=== PATIENT | male | born 1945 | race Caucasian/White ===

== ENCOUNTER 2017-07-05 16:53 | Inpatient (IN) | payer MEDICARE, OTHER ==
[~2017-07-05] VITALS: Ht 185.4 cm; Wt 108.9 kg
[2017-07-05 17:31] VITALS: BP 133/70
[2017-07-05 18:06] LABS: BASO # 0.1 x10^3/uL (0.0-0.2); BASO % 1 % (0-3); EOS # 0.4 x10^3/uL (0.0-0.7); EOS % 6 % (0-3); HEMATOCRIT 44.9 % (39.0-53.0); HEMOGLOBIN 15.6 g/dL (13.0-17.5); LYMPH % 28 % (24-48); MEAN CORPUSCULAR HEMOGLOBIN 36 pg (25-35); MEAN CORPUSCULAR HGB CONC 35 g/dL (31-37); MEAN CORPUSCULAR VOLUME 104 fL (79-100); MONO % 14 % (0-9); NEUT # 3.7 x10^3uL (1.8-7.7); NEUT % 51 % (31-73); PLATELET COUNT 105 x10^3/uL (140-400); RED BLOOD COUNT 4.34 x10^6/uL (4.30-5.70); RED CELL DISTRIBUTION WIDTH 12.5 % (11.5-14.5); WHITE BLOOD COUNT 7.2 x10^3/uL (4.0-11.0)
[2017-07-05] MEDS: IPRATRPIUM/ALBUTEROL 0.5/2.5MG 3 ML NEBU. NEB SCH (18:14)
[2017-07-05 18:36] LABS: ALBUMIN 3.4 g/dL (3.4-5.0); ALBUMIN/GLOBULIN RATIO 0.9 (1.0-1.7); CALCIUM 9.4 mg/dL (8.5-10.1); CREATININE 1.5 mg/dL (0.7-1.3); GFR 46.1; POTASSIUM 4.5 mmol/L (3.5-5.1); TOTAL BILIRUBIN 0.7 mg/dL (0.2-1.0); TOTAL PROTEIN 7.2 g/dL (6.4-8.2)
[2017-07-05] MEDS ORDERED: CETI10TA22 PO (19:12)
[2017-07-05] MEDS ORDERED: OMEG1CAP38 PO (19:12)
[2017-07-05] MEDS ORDERED: MELO7.5T29 PO (19:12)
[2017-07-05] MEDS ORDERED: UBID100C26 PO (19:12)
[2017-07-05] MEDS ORDERED: TRIA10.8 NS (19:12)
[2017-07-05] MEDS ORDERED: CHOL100013 PO (19:12)
[2017-07-05] MEDS ORDERED: LEVO50TA PO (19:12)
[2017-07-05] MEDS ORDERED: METO50TA29 PO (19:12)
[2017-07-05] MEDS ORDERED: VITA1CAP5 PO (19:12)
[2017-07-05] MEDS ORDERED: VALS40TA2 PO (19:12)
[2017-07-05] MEDS ORDERED: MEMA28CA PO (19:12)
[2017-07-05] MEDS ORDERED: FOLI1TAB16 PO (19:12)
[2017-07-05] MEDS ORDERED: ASPI325T8 PO (19:13)
[2017-07-05] MEDS ORDERED: COLE625T12 PO (19:13)
[2017-07-05] MEDS ORDERED: ACYC400T PO (19:13)
[2017-07-05] MEDS ORDERED: ALLO100T PO (19:13)
[2017-07-05] MEDS ORDERED: TAMS0.4C2 PO (19:15)
[2017-07-05] MEDS ORDERED: PSYL0.5215 PO (19:15)
[2017-07-05] MEDS ORDERED: ESOM40CA PO (19:15)
[2017-07-05] MEDS ORDERED: SENN8.6T11 PO (19:15)
[2017-07-05] MEDS ORDERED: BIOT1CAP3 PO (19:15)
[2017-07-05] MEDS ORDERED: ATOR20TA PO (19:17)
[2017-07-05] MEDS ORDERED: MELA3TAB2 PO (19:17)
[2017-07-05] MEDS ORDERED: PREG150C PO (19:17)
[2017-07-05] MEDS ORDERED: ROPI1TAB PO (19:17)
[2017-07-05] MEDS ORDERED: AMIT25TA PO (19:20)
[2017-07-05 19:22] VITALS: BP 137/72
[2017-07-05] MEDS: IV NORMAL SALINE 1,000ML 1,000 ML IV SCH (20:44)
[2017-07-05 22:32] VITALS: BP 114/64
[2017-07-05 22:50] LABS: BACTERIA,URINE 0 /HPF (0-FEW); BILIRUBIN,URINE NEG (NEG); CLARITY,URINE CLEAR; COLOR,URINE STRAW; GLUCOSE,URINE NEG (NEG); NITRITE,URINE NEG (NEG); UROBILINOGEN,URINE 0.2 mg/dL (0.2 mg/dL); WBC,URINE OCC /HPF (0-4)
[2017-07-05 22:51] LABS: HYALINE CASTS, URINE FEW /HPF; SQUAMOUS EPITHELIAL CELL,UR FEW /LPF
[2017-07-06] MEDS: IPRATRPIUM/ALBUTEROL 0.5/2.5MG 3 ML NEBU. NEB SCH ×4 (04:24→22:07)
[2017-07-06 05:51] VITALS: BP 116/70
[2017-07-06 06:41] LABS: BASO # 0.1 x10^3/uL (0.0-0.2); BASO % 1 % (0-3); EOS # 0.4 x10^3/uL (0.0-0.7); EOS % 6 % (0-3); HEMATOCRIT 43.9 % (39.0-53.0); HEMOGLOBIN 15.3 g/dL (13.0-17.5); LYMPH # 1.8 x10^3/uL (1.0-4.8); LYMPH % 27 % (24-48); MEAN CORPUSCULAR HEMOGLOBIN 36 pg (25-35); MEAN CORPUSCULAR HGB CONC 35 g/dL (31-37); MEAN CORPUSCULAR VOLUME 104 fL (79-100); MONO # 0.8 x10^3/uL (0.0-1.1); MONO % 12 % (0-9); NEUT # 3.7 x10^3uL (1.8-7.7); NEUT % 55 % (31-73); PLATELET COUNT 108 x10^3/uL (140-400); RED BLOOD COUNT 4.23 x10^6/uL (4.30-5.70); RED CELL DISTRIBUTION WIDTH 12.4 % (11.5-14.5); WHITE BLOOD COUNT 6.8 x10^3/uL (4.0-11.0)
[2017-07-06 07:01] LABS: ALBUMIN 3.2 g/dL (3.4-5.0); ALBUMIN/GLOBULIN RATIO 0.9 (1.0-1.7); CALCIUM 8.9 mg/dL (8.5-10.1); CREATININE 1.3 mg/dL (0.7-1.3); GFR 54.4; TOTAL BILIRUBIN 0.7 mg/dL (0.2-1.0); TOTAL PROTEIN 6.8 g/dL (6.4-8.2)
--- NOTE | 2017-07-06 07:54 | RAD ---
Chest, 2 views, 07/05/2017: History: Productive cough, fever, malaise The heart size and pulmonary vascularity are normal. There is a calcified granuloma in the right lower chest. No pulmonary infiltrate is seen. No pleural fluid is evident. IMPRESSION: No acute cardiopulmonary abnormality is detected.
[2017-07-06] MEDS ORDERED: COLESEVELAM HCL 625 MG TABLET PO SCH (08:00)
[2017-07-06] MEDS: LEVOTHYROXINE 50 MCG TABLET PO SCH (08:02)
[2017-07-06] MEDS: IV NORMAL SALINE 1,000ML 1,000 ML IV SCH ×2 (08:03→20:40)
--- NOTE | 2017-07-06 08:50 | PDOC2 ---
JOSAFAT MEDINA APRN 07/06/17 0850: CONSULT Date of Admission DATE: 07/06/17 TIME: 08:36 Reason for Consult: dyspnea History of Present Illness Mr Prather is a 72 year old male who presented with complaints of headache starting several days ago followed by fever, dyspnea on exertion and productive cough. He reports baseline dyspnea on exertion with walking up 14 steps which he reports had not increased until the fever and cough started. He denies orthopnea or PND. He denies any chest discomfort. He reports occasional palpitations that he notices at night only without associated symptoms. He denies lightheadedness or syncope. He normally follows with Dr Singleton for cardiology and has a follow up in the next week. Cardiovascular: HTN, hyperipidemia CENTRAL NERVOUS SYSTEM: CVA GI: GERD, Other (polyps) Heme/Onc: Other (thrombocytopenia monitored by hematology, history of bone marrow biopsy reportedly normal, vitamin D deficiency) Musculoskeletal: Other (chronic neck pain) ENT: Other (retnal tear) Renal/: Other (CKD stage III) Endocrine: Hypothyroidism Past Surgical History C-2-3 subluxation tx with traction, bilateral great toe surgery, bilateral cataract surgery Family History significant for coronary disease, breast cancer, glaucoma, diabetes mellitus Social History non smoker, social alcohol intake of 1-2 drinks per occasion, once per month or less, no illicit drug use Current Medications Home cardiac medications Lipitor 20 mg every HS Co enzyme q10 Diovan 40 mg daily Metoprolol 50 mg daily aspirin 325mg BID welchol 1875mg BID Tamsulosin .4mg, 2 tabs every evening Nexium 40mg daily Current Medications Albuterol/ Ipratropium (Duoneb) 3 ml RTQID NEB Last administered on 07/06/17at 04 :24; Start 07/05/17 at 20:00 Sodium Chloride 1,000 ml @ 75 mls/hr [id number] IV Last administered on 07/06/17at 08:03; Start 07/05/17 at 18:00 Allopurinol (Zyloprim) 100 mg BID PO ; Start 07/06/17 at 09:00 Aspirin (Vini Aspirin) 325 mg DAILY PO ; Start 07/06/17 at 09:00 Atorvastatin Calcium (Lipitor) 20 mg QODAY PO ; Start 07/06/17 at 09:00 Cetirizine HCl (ZyrTEC) 10 mg DAILY PO ; Start 07/06/17 at 09:00 Colesevelam HCl (Welchol) 1,875 mg BIDWMEALS PO ; Start 07/06/17 at 08:00 Levothyroxine Sodium (Synthroid) 50 mcg DAILY07 PO Last administered on at 08:02; Start 07/06/17 at 07:00 Meloxicam (Mobic) 7.5 mg DAILY PO ; Start 07/06/17 at 09:00 Metoprolol Succinate (Toprol Xl) 50 mg DAILY PO ; Start 07/06/17 at 09:00 Pregabalin (Lyrica) 150 mg HS PO ; Start 07/06/17 at 21:00 Ropinirole HCl (Requip) 1 mg QHS PO ; Start 07/06/17 at 21:00 Tamsulosin HCl (Flomax) 0.8 mg DAILYBFRSUP PO ; Start 07/06/17 at 17:00 Acyclovir (Zovirax) 400 mg BID PO ; Start 07/06/17 at 09:00 Pantoprazole Sodium (Protonix) 40 mg DAILYWSUP PO ; Start 07/06/17 at 17:00 Melatonin 3 mg QHS PO ; Start 07/06/17 at 21:00 Memantine (Namenda) 10 mg BID PO ; Start 07/06/17 at 09:00 Fluticasone Propionate (Flonase) 2 spray DAILY NS ; Start 07/06/17 at 09:00 Losartan Potassium (Cozaar) 25 mg DAILY PO ; Start 07/06/17 at 09:00 Active Scripts Active Reported Amitriptyline Hcl 25 Mg Tablet 1 Tab PO QHS Melatonin 3 Mg Tablet 1 Tab PO QHS Lipitor (Atorvastatin Calcium) 20 Mg Tablet 20 Mg PO QODAY Requip (Ropinirole Hcl) 1 Mg Tablet 1 Tab PO QHS Lyrica (Pregabalin) 150 Mg Capsule 1 Cap PO HS Biotin 1 Mg Capsule 1 Mg PO DAILYWSUP Metamucil (Psyllium Husk) 0.52 Gm Capsule 0.52 Gm PO DAILYWSUP Senna Laxative (Sennosides) 8.6 Mg Tablet 8.6 Mg PO DAILYWSUP Nexium Capsule (Esomeprazole Magnesium) 40 Mg Capsule.dr 1 Cap PO DAILYWSUP Tamsulosin Hcl 0.4 Mg Cap.er.24h 2 Cap PO DAILYBFRSUP Welchol (Colesevelam Hcl) 625 Mg Tablet 1,875 Mg PO BID Allopurinol 100 Mg Tablet 1 Tab PO BID Acyclovir 400 Mg Tablet 1 Tab PO BID Aspirin 325 Mg Tablet 1 Tab PO DAILY Coq-10 (Ubidecarenone) 100 Mg Capsule 200 Mg PO QODAY [place] 3 Fish Oil Softgel ([place]-3 Fatty Acids/Fish Oil) 1 Each Capsule.dr 1 Each PO QODAY Folic Acid 1 Mg Tablet 1 Tab PO DAILY B Complex With Vitamin C (Vitamin B Complex & Vit C No.3) 1 Each Capsule 1 Each PO DAILY Vitamin D (Cholecalciferol (Vitamin D3)) 1,000 Unit Capsule 1 Cap PO DAILY Nasacort (Triamcinolone Acetonide) 10.8 Ml [place] 10.8 Ml NS DAILY Meloxicam 7.5 Mg Tablet 1 Tab PO DAILY Namenda Xr (Memantine Hcl) 28 Mg Cap.spr.24 28 Mg PO DAILY Zyrtec (Cetirizine Hcl) 10 Mg Tablet 1 Tab PO DAILY Metoprolol Succinate ( Xl ) (Metoprolol Succinate) 50 Mg Tab.er.24h 1 Tab PO DAILY Diovan (Valsartan) 40 Mg Tablet 1 Tab PO DAILY Synthroid (Levothyroxine Sodium) 50 Mcg Tablet 1 Tab PO DAILY Allergies: Coded Allergies: Penicillins (Verified Allergy, Severe, 07/05/17) Sulfa (Sulfonamide Antibiotics) (Verified Allergy, Severe, 07/05/17) Oglqcso-Zer-Acf Reductase Inhibitor (Verified Allergy, Intermediate, myalgia, 07/05/17) General: YES: Chills, Fatigue, Malaise HEENT: YES: Heacaches Respiratory: YES: Cough, SOB with excertion, Sputum Changes Cardiovascular: yes: Palpitations, Edema Musculoskeletal: YES: Other (peripheral neuropathy) General: Alert, Oriented X3, Cooperative, No acute distress HEENT: Atraumatic, EOMI, Mucous membr. moist/pink Lungs: Other (crackles left base, otherwise clear) Heart: Regular rate, Normal S1, Normal S2, Other (no gallops, clicks or rubs) Abdomen: Normal bowel sounds, Soft Extremities: No cyanosis, Normal pulses, Other (trace edema) Neuro: Normal speech, Strength at 5/5 X4 ext Psych/Mental Status: Mental status NL, Mood NL VITALS Vital Signs Date Time Temp Pulse Resp B/P (MAP) Pulse Ox O2 Delivery O2 Flow Rate FiO2 07/06/17 05:51 97.9 73 20 116/70 (85) 91 Room Air Labs Laboratory Tests Test 07/05/17 17:40 07/05/17 20:30 07/05/17 23:20 07/06/17 06:25 White Blood Count 7.2 x10^3/uL (4.0-11.0) 6.8 x10^3/uL (4.0-11.0) Red Blood Count 4.34 x10^6/uL (4.30-5.70) 4.23 x10^6/uL (4.30-5.70) Hemoglobin 15.6 g/dL (13.0-17.5) 15.3 g/dL (13.0-17.5) Hematocrit 44.9 % (39.0-53.0) 43.9 % (39.0-53.0) Mean Corpuscular Volume 104 fL (79-100) 104 fL (79-100) Mean Corpuscular Hemoglobin 36 pg (25-35) 36 pg (25-35) Mean Corpuscular Hemoglobin Concent 35 g/dL (31-37) 35 g/dL (31-37) Red Cell Distribution Width 12.5 % (11.5-14.5) 12.4 % (11.5-14.5) Platelet Count 105 x10^3/uL (140-400) 108 x10^3/uL (140-400) Neutrophils (%) (Auto) 51 % (31-73) 55 % (31-73) Lymphocytes (%) (Auto) 28 % (24-48) 27 % (24-48) Monocytes (%) (Auto) 14 % (0-9) 12 % (0-9) Eosinophils (%) (Auto) 6 % (0-3) 6 % (0-3) Basophils (%) (Auto) 1 % (0-3) 1 % (0-3) Neutrophils # (Auto) 3.7 x10^3uL (1.8-7.7) 3.7 x10^3uL (1.8-7.7) Lymphocytes # (Auto) 2.0 x10^3/uL (1.0-4.8) 1.8 x10^3/uL (1.0-4.8) Monocytes # (Auto) 1.0 x10^3/uL (0.0-1.1) 0.8 x10^3/uL (0.0-1.1) Eosinophils # (Auto) 0.4 x10^3/uL (0.0-0.7) 0.4 x10^3/uL (0.0-0.7) Basophils # (Auto) 0.1 x10^3/uL (0.0-0.2) 0.1 x10^3/uL (0.0-0.2) D-Dimer (Jasmyne) 1.19 mg/L (0.00-0.50) Sodium Level 137 mmol/L (136-145) 138 mmol/L (136-145) Potassium Level 4.5 mmol/L (3.5-5.1) 4.0 mmol/L (3.5-5.1) Chloride Level 101 mmol/L (98-107) 105 mmol/L (98-107) Carbon Dioxide Level 24 mmol/L (21-32) 25 mmol/L (21-32) Anion Gap 12 (6-14) 8 (6-14) Blood Urea Nitrogen 23 mg/dL (8-26) 21 mg/dL (8-26) Creatinine 1.5 mg/dL (0.7-1.3) 1.3 mg/dL (0.7-1.3) Estimated GFR (Cockcroft-Gault) 46.1 54.4 BUN/Creatinine Ratio 15 (6-20) 16 (6-20) Glucose Level 92 mg/dL (70-99) 104 mg/dL (70-99) Lactic Acid Level 1.0 mmol/L (0.4-2.0) Calcium Level 9.4 mg/dL (8.5-10.1) 8.9 mg/dL (8.5-10.1) Total Bilirubin 0.7 mg/dL (0.2-1.0) 0.7 mg/dL (0.2-1.0) Aspartate Amino Transf (AST/SGOT) 18 U/L (15-37) 20 U/L (15-37) Alanine Aminotransferase (ALT/SGPT) 24 U/L (16-63) 25 U/L (16-63) Alkaline Phosphatase 54 U/L (46-116) 48 U/L (46-116) Creatine Kinase 57 U/L (39-308) Creatine Kinase MB (Mass) 0.5 ng/mL (0.0-3.6) Creatine Kinase MB Relative Index 0.9 % (0-4) Troponin I Quantitative < 0.017 ng/mL (0-0.055) < 0.017 ng/mL (0-0.055) < 0.017 ng/mL (0-0.055) BH-Zxb-B-Type Natriuretic Peptide 147 pg/mL (0-124) Total Protein 7.2 g/dL (6.4-8.2) 6.8 g/dL (6.4-8.2) Albumin 3.4 g/dL (3.4-5.0) 3.2 g/dL (3.4-5.0) Albumin/Globulin Ratio 0.9 (1.0-1.7) 0.9 (1.0-1.7) Urine Collection Type Unknown Urine Color Straw Urine Clarity Clear Urine pH 5.5 Urine Specific [place] <=1.005 Urine Protein Neg (NEG-TRACE) Urine Glucose (UA) Neg mg/dL (NEG) Urine Ketones (Stick) Neg mg/dL (NEG) Urine Blood Neg (NEG) Urine Nitrite Neg (NEG) Urine Bilirubin Neg (NEG) Urine Urobilinogen Dipstick 0.2 mg/dL (0.2 mg/dL) Urine Leukocyte Esterase Neg (NEG) Urine RBC 1-2 /HPF (0-2) Urine WBC Occ /HPF (0-4) Urine Squamous Epithelial Cells Few /LPF Urine Bacteria 0 /HPF (0-FEW) Urine Hyaline Casts Few /HPF Urine Mucus Slight /LPF Images EKG - sinus rhythm, leftward axis, nonspecific T abn, no acute ischemic changes CXR - IMPRESSION: No acute cardiopulmonary abnormality is detected. Assessment/Plan 1. dyspnea on exertion - stable prior to acute onset of illness. Check echo for LV function and request records from [facility]. 2. Pneumonia - mgmt per PCP 3. hypertension - resume home medications 4. hyperlipidemia - check lipids and resume statin Echo as mentioned above, review records from [facility] when available. If no significant abnormalities would be ok to follow up with Dr Singleton as scheduled in the next week from cardiac standpoint. Problems: AVNI GRIGGS MD 07/06/17 1434: CONSULT Allergies: Coded Allergies: Penicillins (Verified Allergy, Severe, 07/05/17) Sulfa (Sulfonamide Antibiotics) (Verified Allergy, Severe, 07/05/17) Hkmeawq-Wmv-Vhf Reductase Inhibitor (Verified Allergy, Intermediate, myalgia, 07/05/17) Assessment/Plan Patient seen and examined. Agree with HATCHERY WORKER's assessment and plan. Patient has dyspnea on exertion but does not have any clinical evidence for fluid overload. Check 2-D echo to assess LV systolic function and rule out wall motion abnormalities. Further ischemic workup in the form of Lexiscan nuclear stress test could be considered as an outpatient. Thank you for your consultation. Problems: JOSAFAT MEDINA APRN July 06, 2017 08:50 AVNI GRIGGS MD July 06, 2017 14:34
[2017-07-06] MEDS ORDERED: ATORVASTATIN CALCIUM 20 MG TABLET PO SCH (09:00)
[2017-07-06] MEDS: ACYCLOVIR 200 MG CAPSULE PO SCH ×2 (09:12→21:06)
[2017-07-06] MEDS: LOSARTAN 25 MG TABLET. PO SCH (09:13)
[2017-07-06] MEDS: ASPIRIN 325 MG TABLET PO SCH (09:13)
[2017-07-06] MEDS: CETIRIZINE HCL 10 MG TABLET PO SCH (09:14)
[2017-07-06] MEDS: METOPROLOL SUCC 24HR ER 50 MG TAB.ER.24H. PO SCH (09:14)
[2017-07-06] MEDS: MELOXICAM 7.5 MG TABLET PO SCH (09:14)
[2017-07-06] MEDS: ALLOPURINOL 100 MG TABLET. PO SCH ×2 (09:14→21:05)
[2017-07-06] MEDS: MEMANTINE 10 MG TABLET. PO SCH ×2 (09:14→21:06)
[2017-07-06] MEDS: ENOXAPARIN 40 MG/0.4 ML DISP.SYRIN. SQ SCH (09:23)
[2017-07-06] MEDS: FLUTICASONE 50MCG/NASAL SPRAY 16GM BOTTLE. NS SCH (09:23)
--- NOTE | 2017-07-06 10:44 | RAD ---
CTA chest with contrast 07/06/2017 Clinical indication: Elevated d-dimer. COMPARISON: Two-view chest 07/05/2017 TECHNIQUE: Multiple CTA images of the chest were obtained following the intravenous administration of 60 mL Omnipaque 300. MIPS were obtained of the chest. *One or more of the following individualized dose reduction techniques were utilized for this examination: 1. Automated exposure control. 2. Adjustment of the mA and/or kV according to patient size. 3. Use of iterative reconstruction technique. FINDINGS: Nondiagnostic evaluation of the major segmental and subsegmental pulmonary arteries. Main pulmonary artery is patent. Heart size is normal without significant pericardial effusion. Three-vessel coronary artery calcifications. Mild dilatation of the ascending thoracic aorta measuring 4.1 cm. There is scattered mixed atheromatous disease throughout the thoracic aorta. No axillary, mediastinal or hilar lymphadenopathy. There are scattered right hilar calcified granulomas. The central airways are patent. There is minimal subsegmental atelectasis or scarring in the dependent bilateral lower lobes. There are scattered calcific granulomas in the right lung. There is a 0.4 cm subpleural noncalcified nodule in the right middle lobe series 3/image 53 which is likely benign intrapulmonic lymph node. There are no destructive osseous lesions. Limited images of the upper abdomen: 2.1 cm hypodensity in the superior pole the right kidney which does not meet strict criteria for simple cyst. There are additional bilateral renal hypodensities which are too small to characterize. IMPRESSION: 1. Nondiagnostic evaluation of the major and subsegmental pulmonary arteries. 2. No main pulmonary arterial embolism. 3. Indeterminate bilateral renal hypodensities. Nonemergent follow-up CT or MRI without and with contrast (renal protocol). 4. Dilated ascending thoracic aorta measuring 4.1 cm. Electronically signed by: Robert Turk MD (07/06/2017 10:40 AM) [id number]
[2017-07-06 11:27] VITALS: BP 121/67
--- NOTE | 2017-07-06 14:10 | EKG ---
[address] [address] Test Date: 2017-07-05 Test Time: 17:32:23 Pat Name: KEVIN MANDUJANO Department: Room: 115 A Gender: M Patent Legal Assistant: : [id number] Requested By: FLORY GALE Order Number: [id number] Reading MD: Ayush Siu Measurements Intervals [place] Rate: P: OR: QRS: QRSD: T: QT: QTc: Interpretive Statements SINUS RHYTHM NONSPECIFIC ST-T WAVE CHANGES SEPTAL Q WAVE Electronically Signed On 07-12-2017 17:35:52 CDT by Ayush Siu
[2017-07-06 15:32] VITALS: BP 102/66
[2017-07-06] MEDS ORDERED: PANTOPRAZOLE 40 MG TABLET. PO SCH (17:00)
[2017-07-06] MEDS ORDERED: TAMSULOSIN 0.4 MG CAP.ER.24H. PO SCH (17:00)
[2017-07-06 19:49] VITALS: BP 109/77
[2017-07-06] MEDS ORDERED: PREGABALIN 150 MG CAPSULE PO SCH (21:00)
[2017-07-06] MEDS ORDERED: MELATONIN 3 MG TABLET PO SCH (21:00)
[2017-07-06] MEDS ORDERED: rOPINIRole 1 MG TABLET. PO SCH (21:00)
[2017-07-06 22:51] VITALS: BP 135/65
--- NOTE | 2017-07-07 05:10 | PN ---
DATE: 07/06/2017 SUBJECTIVE: The patient is a 72-year-old male who is in with complaints of headache for several days followed by fever, dyspnea on exertion and productive cough. The patient has baseline dyspnea; however, his EKG showed the patient to have some form of bigeminy. He was admitted. He also had some chest tightness. It appears that he also has some hypothyroidism, involved in an elevated D-dimer. The patient's imaging showed that he had a CTA that showed a dilated ascending thoracic aorta at 4.1 cm. Otherwise, some calcified granulomas, however, otherwise unremarkable. Echo was still being pending. OBJECTIVE: VITAL SIGNS: Blood pressure 100/66, respiratory rate 20, pulse 90, afebrile. GENERAL: The patient is alert and oriented. LUNGS: Diminished throughout, poor movement of air. CARDIOVASCULAR: Regular sinus rhythm, S1, S2. No murmur, rub, thrill, or extra heart sound. ABDOMEN: Soft, nontender, no rebound or guarding. Positive bowel sounds, no hepatosplenomegaly noted. EXTREMITIES: No clubbing, cyanosis or edema. NEUROLOGIC: Intact. IMPRESSION: Chest pain, dyspnea, elevated D-dimer, hypercholesterolemia, hyperlipidemia, thrombocytopenia, acute bronchitis, hueo-xw-adkzwlqu protein malnutrition, hypothyroidism. PLAN: Continue with present workup with Cardiology to make further evaluation on him as indicated. FLORY GALE MD DR: RIDDHI/pal JOB#: [id number] / [id number]
[2017-07-07 05:36] VITALS: BP 147/80
[2017-07-07] MEDS: LEVOTHYROXINE 50 MCG TABLET PO SCH (05:38)
[2017-07-07] MEDS: IPRATRPIUM/ALBUTEROL 0.5/2.5MG 3 ML NEBU. NEB SCH ×2 (05:46→10:27)
[2017-07-07] MEDS: MELOXICAM 7.5 MG TABLET PO SCH (08:16)
[2017-07-07] MEDS: MEMANTINE 10 MG TABLET. PO SCH (08:17)
[2017-07-07] MEDS: CETIRIZINE HCL 10 MG TABLET PO SCH (08:17)
[2017-07-07] MEDS: LOSARTAN 25 MG TABLET. PO SCH (08:17)
[2017-07-07] MEDS: ACYCLOVIR 200 MG CAPSULE PO SCH (08:17)
[2017-07-07] MEDS: ASPIRIN 325 MG TABLET PO SCH (08:17)
[2017-07-07 08:18] VITALS: BP 147/80
[2017-07-07] MEDS: METOPROLOL SUCC 24HR ER 50 MG TAB.ER.24H. PO SCH (08:18)
[2017-07-07] MEDS: ENOXAPARIN 40 MG/0.4 ML DISP.SYRIN. SQ SCH (08:18)
[2017-07-07] MEDS: ALLOPURINOL 100 MG TABLET. PO SCH (08:18)
[2017-07-07] MEDS: IV NORMAL SALINE 1,000ML 1,000 ML IV SCH (08:19)
[2017-07-07] MEDS: COLESEVELAM HCL 625 MG TABLET PO SCH ×2 (08:19→08:24)
[2017-07-07] MEDS: FLUTICASONE 50MCG/NASAL SPRAY 16GM BOTTLE. NS SCH (08:19)
--- NOTE | 2017-07-07 08:29 | CARD ---
MR#: [id number] Date of Study: 07/06/2017 Ordering Physician: JOSAFAT MEDINA, Referring Physician: FLORY GALE, Tech: GOLDEN Howe APPROVED REPORT EXAM: Two-dimensional and M-mode echocardiogram with Doppler and color Doppler. Other Information Quality : Fair INDICATION Abnormal ECG 2D DIMENSIONS Left Atrium(2D)4.6 (1.6-4.0cm)IVSd1.2 (0.7-1.1cm) Aortic Root(2D)2.7 (2.0-3.7cm)LVDd5.1 (3.9-5.9cm) LVOT Diameter2.0 (1.8-2.4cm)IVSs1.4 (0.8-1.2cm) LVDs2.6 (2.5-4.0cm)FS (%) 49.0 % SV97.8 mlLVEF(%)65.0 (>50%) Aortic Valve AoV Peak Geovanny.136.9cm/[place] GR.7.5mmHg Mitral Valve MV E Ybvaxidz205.2cm/sMV A Jbomqetw56.1cm/s E/A Ratio1.3 Tricuspid Valve TR P. Hsaatsxu11il/sRAP [id number] TR Peak Gr.[id number] LEFT VENTRICLE The left ventricle is normal size. There is mild concentric left ventricular hypertrophy. The left ve ntricular systolic function is normal and the ejection fraction is within normal range. The Ejection Fraction is 60-65%. There is normal LV segmental wall motion. RIGHT VENTRICLE The right ventricle is normal size. There is normal right ventricular wall thickness. The right ventr icular systolic function is normal. ATRIA The left atrium is mildly dilated. The right atrium size is normal. The interatrial septum is intact with no evidence for an atrial septal defect or patent foramen ovale as noted on 2-D or Doppler imagi ng. AORTIC VALVE The aortic valve is trileaflet. The aortic valve is mildly calcified. Doppler and Color Flow revealed mild aortic regurgitation. There is no significant aortic valvular stenosis. MITRAL VALVE Mitral annular calcification is mild. There is no evidence of mitral valve prolapse. There is no mitr al valve stenosis. Doppler and Color-flow revealed trace to mild mitral regurgitation. TRICUSPID VALVE The tricuspid valve is normal in structure and function. Doppler and Color Flow revealed trace tricus pid regurgitation. The PASP is 48mmHg. There is no tricuspid valve stenosis. PULMONIC VALVE The pulmonic valve is not well visualized. Doppler and Color Flow revealed no pulmonic valvular regur gitation. There is no pulmonic valvular stenosis. GREAT VESSELS The aortic root is normal in size. The ascending aorta is mildly dilated at 4.1 cm The IVC partially collapses with inspiration. PERICARDIAL EFFUSION There is no pleural effusion. There is no evidence of significant pericardial effusion. Critical Notification Critical Value: No <Conclusion> The left ventricular systolic function is normal and the ejection fraction is within normal range. Th e Ejection Fraction is 60-65%. There is normal LV segmental wall motion. Doppler and Color Flow revealed mild aortic regurgitation. Doppler and Color Flow revealed trace tricuspid regurgitation. The PASP is 48mmHg. The ascending aorta is mildly dilated at 4.1 cm Signed by : Francis Barbosa, Electronically Approved : 07/07/2017 08:28:58
--- NOTE | 2017-07-07 09:16 | PDOC ---
PROGRESS NOTES Assessment 1. dyspnea on exertion - stable prior to acute onset of illness. normal LV function and wall motion by echo. Keep scheduled follow up with [facility]. 2. Pneumonia - mgmt per PCP 3. hypertension - blood pressure has been well controlled. mildly elevated today. monitor outpatient and consider increase of losartan. 4. hyperlipidemia - controlled, continue statin Problems: Subjective feeling better, would like to go home. no chest pain, less shortness of breath , no palpitations, no lightheadedness. Objective Vital Signs Date Time Temp Pulse Resp B/P (MAP) Pulse Ox O2 Delivery O2 Flow Rate FiO2 07/07/17 08:18 66 147/80 07/07/17 05:46 94 Room Air 07/07/17 05:36 97.7 20 Intake and Output 07/07/17 07:00 Intake Total 2377 ml Balance 2377 ml Intake Oral 1290 ml IV Total 1087 ml # Voids 3 Abdomen: Normal bowel sounds, Soft, No tenderness Heart: Regular rate, Normal S1, Normal S2 Extremities: No cyanosis, Normal pulses General: Alert, Oriented X3, Cooperative Lungs: Other (decreased bases, otherwise clear) Neuro: Normal gait, Normal speech, Strength at 5/5 X4 ext Psych/Mental Status: Mental status NL, Mood NL Review of Relevant I have reviewed the following items federico (where applicable) has been applied. Labs Laboratory Tests Test 07/05/17 17:40 07/05/17 20:30 07/05/17 23:20 07/06/17 06:25 White Blood Count 7.2 x10^3/uL (4.0-11.0) 6.8 x10^3/uL (4.0-11.0) Red Blood Count 4.34 x10^6/uL (4.30-5.70) 4.23 x10^6/uL (4.30-5.70) Hemoglobin 15.6 g/dL (13.0-17.5) 15.3 g/dL (13.0-17.5) Hematocrit 44.9 % (39.0-53.0) 43.9 % (39.0-53.0) Mean Corpuscular Volume 104 fL (79-100) 104 fL (79-100) Mean Corpuscular Hemoglobin 36 pg (25-35) 36 pg (25-35) Mean Corpuscular Hemoglobin Concent 35 g/dL (31-37) 35 g/dL (31-37) Red Cell Distribution Width 12.5 % (11.5-14.5) 12.4 % (11.5-14.5) Platelet Count 105 x10^3/uL (140-400) 108 x10^3/uL (140-400) Neutrophils (%) (Auto) 51 % (31-73) 55 % (31-73) Lymphocytes (%) (Auto) 28 % (24-48) 27 % (24-48) Monocytes (%) (Auto) 14 % (0-9) 12 % (0-9) Eosinophils (%) (Auto) 6 % (0-3) 6 % (0-3) Basophils (%) (Auto) 1 % (0-3) 1 % (0-3) Neutrophils # (Auto) 3.7 x10^3uL (1.8-7.7) 3.7 x10^3uL (1.8-7.7) Lymphocytes # (Auto) 2.0 x10^3/uL (1.0-4.8) 1.8 x10^3/uL (1.0-4.8) Monocytes # (Auto) 1.0 x10^3/uL (0.0-1.1) 0.8 x10^3/uL (0.0-1.1) Eosinophils # (Auto) 0.4 x10^3/uL (0.0-0.7) 0.4 x10^3/uL (0.0-0.7) Basophils # (Auto) 0.1 x10^3/uL (0.0-0.2) 0.1 x10^3/uL (0.0-0.2) D-Dimer (Jasmyne) 1.19 mg/L (0.00-0.50) Sodium Level 137 mmol/L (136-145) 138 mmol/L (136-145) Potassium Level 4.5 mmol/L (3.5-5.1) 4.0 mmol/L (3.5-5.1) Chloride Level 101 mmol/L (98-107) 105 mmol/L (98-107) Carbon Dioxide Level 24 mmol/L (21-32) 25 mmol/L (21-32) Anion Gap 12 (6-14) 8 (6-14) Blood Urea Nitrogen 23 mg/dL (8-26) 21 mg/dL (8-26) Creatinine 1.5 mg/dL (0.7-1.3) 1.3 mg/dL (0.7-1.3) Estimated GFR (Cockcroft-Gault) 46.1 54.4 BUN/Creatinine Ratio 15 (6-20) 16 (6-20) Glucose Level 92 mg/dL (70-99) 104 mg/dL (70-99) Lactic Acid Level 1.0 mmol/L (0.4-2.0) Calcium Level 9.4 mg/dL (8.5-10.1) 8.9 mg/dL (8.5-10.1) Total Bilirubin 0.7 mg/dL (0.2-1.0) 0.7 mg/dL (0.2-1.0) Aspartate Amino Transf (AST/SGOT) 18 U/L (15-37) 20 U/L (15-37) Alanine Aminotransferase (ALT/SGPT) 24 U/L (16-63) 25 U/L (16-63) Alkaline Phosphatase 54 U/L (46-116) 48 U/L (46-116) Creatine Kinase 57 U/L (39-308) Creatine Kinase MB (Mass) 0.5 ng/mL (0.0-3.6) Creatine Kinase MB Relative Index 0.9 % (0-4) Troponin I Quantitative < 0.017 ng/mL (0-0.055) < 0.017 ng/mL (0-0.055) < 0.017 ng/mL (0-0.055) ZV-Smo-B-Type Natriuretic Peptide 147 pg/mL (0-124) Total Protein 7.2 g/dL (6.4-8.2) 6.8 g/dL (6.4-8.2) Albumin 3.4 g/dL (3.4-5.0) 3.2 g/dL (3.4-5.0) Albumin/Globulin Ratio 0.9 (1.0-1.7) 0.9 (1.0-1.7) Thyroid Stimulating Hormone (TSH) 5.396 uIU/mL (0.358-3.740) Urine Collection Type Unknown Urine Color Straw Urine Clarity Clear Urine pH 5.5 Urine Specific [place] <=1.005 Urine Protein Neg (NEG-TRACE) Urine Glucose (UA) Neg mg/dL (NEG) Urine Ketones (Stick) Neg mg/dL (NEG) Urine Blood Neg (NEG) Urine Nitrite Neg (NEG) Urine Bilirubin Neg (NEG) Urine Urobilinogen Dipstick 0.2 mg/dL (0.2 mg/dL) Urine Leukocyte Esterase Neg (NEG) Urine RBC 1-2 /HPF (0-2) Urine WBC Occ /HPF (0-4) Urine Squamous Epithelial Cells Few /LPF Urine Bacteria 0 /HPF (0-FEW) Urine Hyaline Casts Few /HPF Urine Mucus Slight /LPF Triglycerides Level 88 mg/dL (0-150) Cholesterol Level 129 mg/dL (0-200) LDL Cholesterol, Calculated 79 mg/dL (0-100) VLDL Cholesterol, Calculated 17 mg/dL (0-40) Non-HDL Cholesterol Calculated 96 mg/dL (0-129) HDL Cholesterol 33 mg/dL (40-60) Cholesterol/HDL Ratio 3.0 Microbiology 07/05/17 Blood Culture - Preliminary, Resulted NO GROWTH AFTER 1 DAY Medications Current Medications Albuterol/ Ipratropium (Duoneb) 3 ml RTQID NEB Last administered on 07/07/17at 05 :46; Start 07/05/17 at 20:00 Sodium Chloride 1,000 ml @ 75 mls/hr [id number] IV Last administered on 07/06/17at 08:03; Start 07/05/17 at 18:00 Allopurinol (Zyloprim) 100 mg BID PO Last administered on 07/07/17at 08:18; Start 07/06/17 at 09:00 Aspirin (Vini Aspirin) 325 mg DAILY PO Last administered on 07/07/17at 08:17; Start 07/06/17 at 09:00 Atorvastatin Calcium (Lipitor) 20 mg QODAY PO Last administered on 07/06/17at 09: 13; Start 07/06/17 at 09:00 Cetirizine HCl (ZyrTEC) 10 mg DAILY PO Last administered on 07/07/17at 08:17; Start 07/06/17 at 09:00 Colesevelam HCl (Welchol) 1,875 mg BIDWMEALS PO Last administered on 07/06/17at 09:31; Start 07/06/17 at 08:00; Stop 07/06/17 at 10:08; Status DC Levothyroxine Sodium (Synthroid) 50 mcg DAILY07 PO Last administered on at 05:38; Start 07/06/17 at 07:00 Meloxicam (Mobic) 7.5 mg DAILY PO Last administered on 07/07/17at 08:16; Start at 09:00 Metoprolol Succinate (Toprol Xl) 50 mg DAILY PO Last administered on 07/07/17 08:18; Start 07/06/17 at 09:00 Pregabalin (Lyrica) 150 mg HS PO Last administered on 07/06/17 21:06; Start 07/06/17 at 21:00 Ropinirole HCl (Requip) 1 mg QHS PO Last administered on 07/06/17at 21:05; Start 07/06/17 at 21:00 Tamsulosin HCl (Flomax) 0.8 mg DAILYBFRSUP PO Last administered on 07/06/17at 17: 07; Start 07/06/17 at 17:00 Acyclovir (Zovirax) 400 mg BID PO Last administered on 07/07/17 08:17; Start at 09:00 Pantoprazole Sodium (Protonix) 40 mg DAILYWSUP PO Last administered on at 17:07; Start 07/06/17 at 17:00 Melatonin 3 mg QHS PO Last administered on 07/06/17at 21:06; Start 07/06/17 at 21: 00 Memantine (Namenda) 10 mg BID PO Last administered on 07/07/17at 08:17; Start 07/06/17 at 09:00 Fluticasone Propionate (Flonase) 2 spray DAILY NS Last administered on at 09:23; Start 07/06/17 at 09:00 Losartan Potassium (Cozaar) 25 mg DAILY PO Last administered on 07/07/17at 08:17 ; Start 07/06/17 at 09:00 Enoxaparin Sodium (Lovenox) 40 mg Q24H SQ Last administered on 07/07/17at 08:18; Start 07/06/17 at 09:00 Colesevelam HCl (Welchol) 1,875 mg QODAY PO Last administered on 07/07/17at 08:19 ; Start 07/07/17 at 08:00 Active Scripts Active Reported Amitriptyline Hcl 25 Mg Tablet 1 Tab PO QHS Melatonin 3 Mg Tablet 1 Tab PO QHS Lipitor (Atorvastatin Calcium) 20 Mg Tablet 20 Mg PO QODAY Requip (Ropinirole Hcl) 1 Mg Tablet 1 Tab PO QHS Lyrica (Pregabalin) 150 Mg Capsule 1 Cap PO HS Biotin 1 Mg Capsule 1 Mg PO DAILYWSUP Metamucil (Psyllium Husk) 0.52 Gm Capsule 0.52 Gm PO DAILYWSUP Senna Laxative (Sennosides) 8.6 Mg Tablet 8.6 Mg PO DAILYWSUP Nexium Capsule (Esomeprazole Magnesium) 40 Mg Capsule.dr 1 Cap PO DAILYWSUP Tamsulosin Hcl 0.4 Mg Cap.er.24h 2 Cap PO DAILYBFRSUP Welchol (Colesevelam Hcl) 625 Mg Tablet 1,875 Mg PO BID Allopurinol 100 Mg Tablet 1 Tab PO BID Acyclovir 400 Mg Tablet 1 Tab PO BID Aspirin 325 Mg Tablet 1 Tab PO DAILY Coq-10 (Ubidecarenone) 100 Mg Capsule 200 Mg PO QODAY [place] 3 Fish Oil Softgel ([place]-3 Fatty Acids/Fish Oil) 1 Each Capsule.dr 1 Each PO QODAY Folic Acid 1 Mg Tablet 1 Tab PO DAILY B Complex With Vitamin C (Vitamin B Complex & Vit C No.3) 1 Each Capsule 1 Each PO DAILY Vitamin D (Cholecalciferol (Vitamin D3)) 1,000 Unit Capsule 1 Cap PO DAILY Nasacort (Triamcinolone Acetonide) 10.8 Ml [place] 10.8 Ml NS DAILY Meloxicam 7.5 Mg Tablet 1 Tab PO DAILY Namenda Xr (Memantine Hcl) 28 Mg Cap.spr.24 28 Mg PO DAILY Zyrtec (Cetirizine Hcl) 10 Mg Tablet 1 Tab PO DAILY Metoprolol Succinate ( Xl ) (Metoprolol Succinate) 50 Mg Tab.er.24h 1 Tab PO DAILY Diovan (Valsartan) 40 Mg Tablet 1 Tab PO DAILY Synthroid (Levothyroxine Sodium) 50 Mcg Tablet 1 Tab PO DAILY Vitals/I & O Vital Sign - Last 24 Hours 5/107/06/17 07/06/17 07/06/17 10:32 11:27 15:32 16:58 Temp 97.8 97.9 Pulse 85 72 Resp 20 20 B/P (MAP) 121/67 (85) 102/66 (78) Pulse Ox 92 91 93 93 O2 Delivery Room Air Room Air Room Air 07/06/17 07/06/17 07/06/17 07/06/17 19:49 20:00 22:07 22:51 Temp 97.7 97.8 Pulse 81 76 Resp 20 18 B/P (MAP) 109/77 (88) 135/65 (88) Pulse Ox 93 95 92 O2 Delivery Room Air Room Air Room Air Room Air 07/07/17 07/07/17 07/07/17 07/07/17 05:36 05:46 08:17 08:18 Temp 97.7 Pulse 66 66 66 Resp 20 B/P (MAP) 147/80 (102) 147/80 147/80 Pulse Ox 93 94 O2 Delivery Room Air Room Air Intake and Output 07/06/17 07/06/17 07/07/17 15:00 23:00 07:00 Intake Total 240 ml 1387 ml 750 ml Balance 240 ml 1387 ml 750 ml JOSAFAT [employer] July 07, 2017 09:16
[2017-07-07] MEDS ORDERED: DOXY100C2 PO (10:27)
[2017-07-07] MEDS ORDERED: FLUT16SP21 NS (10:27)
--- NOTE | 2017-07-07 12:07 | DS ---
DATE OF DISCHARGE: 07/07/2017 HOSPITAL COURSE: This 72-year-old gentleman initially came in through the office. He was having complaints of several days of fever or dyspnea on exertion, productive cough. He was quite diaphoretic in the office. He had some forms of bigeminy and chest tightness. He was also noted to have an elevated D-dimer and alike. As a result of this, the patient was admitted to the hospital for further evaluation and treatment and placed on IV antibiotic therapy as well as aggressive pulmonary toilet. His TSH was slightly elevated at 5.4. His cholesterol was being controlled with various medications. His cardiac enzymes were negative. Cardiology was consulted. D-dimer positive, although a CTA was unremarkable. The patient otherwise made good progress during the rest of his hospitalization. An indeterminate bilateral renal hypodensity was noted on his kidneys and recommended a followup MRI scan of them. In any case, the patient had various stress tests and alike with Cardiology and they came out to be basically stable with no significant finding at this time, although the patient will follow up with his usual vp public relations, Dr. Singleton from [facility]. His ejection fraction was 60-65%, normal left ventricular segmental wall motion revealed mild aortic regurgitation, trace tricuspid regurgitation and as noted, the aorta dilated to 5.1 cm. The patient made excellent progress during the rest of his hospitalization. He was discharged home for followup with Cardiology as well as primary care physician. IMPRESSION: Systemic inflammatory response syndrome, unknown etiology; [id number] protein malnutrition; hypothyroidism; ventricular arrhythmias. The patient will be discharged home to follow up as an outpatient. 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 FLORY GALE MD DR: RIDDHI/pal JOB#: [id number] / [id number]
== END 2017-07-07 10:47 | disposition home or self-care (01) | DRG 178 ==
LOC: 1 SOUTH 17:03
PROVIDERS: ADMIT Family Medicine; ATTEND Family Medicine
DX: J15.8 Pneumonia due to other specified bacteria (principal); E44.0 Moderate protein-calorie malnutrition; D69.6 Thrombocytopenia, unspecified; R65.10 Systemic inflammatory response syndrome (SIRS) of non-infectious origin without acute organ dysfunction; R06.03 Acute respiratory distress; I35.1 Nonrheumatic aortic (valve) insufficiency; J20.9 Acute bronchitis, unspecified; N18.3 Chronic kidney disease, stage 3 (moderate); I49.8 Other specified cardiac arrhythmias; E78.5 Hyperlipidemia, unspecified; I77.810 Thoracic aortic ectasia; R94.31 Abnormal electrocardiogram [ECG] [EKG]; R00.8 Other abnormalities of heart beat; R07.89 Other chest pain; I49.9 Cardiac arrhythmia, unspecified; D49.519 Neoplasm of unspecified behavior of unspecified kidney; M54.2 Cervicalgia; E03.9 Hypothyroidism, unspecified; G89.29 Other chronic pain; E78.00 Pure hypercholesterolemia, unspecified; K21.9 Gastro-esophageal reflux disease without esophagitis; I12.9 Hypertensive chronic kidney disease with stage 1 through stage 4 chronic kidney disease, or unspecified chronic kidney disease; Z83.3 Family history of diabetes mellitus; Z80.3 Family history of malignant neoplasm of breast; Z86.73 Personal history of transient ischemic attack (TIA), and cerebral infarction without residual deficits; Z86.69 Personal history of other diseases of the nervous system and sense organs; Z68.31 Body mass index [BMI] 31.0-31.9, adult; Z79.899 Other long term (current) drug therapy; Z88.0 Allergy status to penicillin; Z88.2 Allergy status to sulfonamides; Z88.8 Allergy status to other drugs, medicaments and biological substances
CPT/HCPCS: 36415; 71046; 71275; 80053; 80061; 81001; 82553; 83605; 83880; 84443; 84484; 85025; 85379; 87040; 93005; 93306; 94640; J1650; J7620; J7030

== ENCOUNTER → 2017-08-20 | Outpatient (CLI) | payer MEDICARE, OTHER ==
[~2017-08-20] MED LIST: ACYC400T PO; ALLO100T PO; AMIT25TA PO; ASPI325T8 PO; ATOR20TA PO; BIOT1CAP3 PO; CETI10TA22 PO; CHOL100013 PO; COLE625T12 PO; DOXY100C2 PO; ESOM40CA PO; FLUT16SP21 NS; FOLI1TAB16 PO; LEVO50TA PO; MELA3TAB2 PO; MELO7.5T29 PO; MEMA28CA PO; METO50TA29 PO; OMEG1CAP38 PO; PREG150C PO; PSYL0.5215 PO; ROPI1TAB PO; SENN8.6T11 PO; TAMS0.4C2 PO; TRIA10.8 NS; UBID100C26 PO; VALS40TA2 PO; VITA1CAP5 PO
--- NOTE | 2017-08-20 10:39 | RAD ---
Renal Ultrasound 08.20.17 comparison study: None Discussion: Ultrasound evaluation of the kidneys is performed. Static images were submitted to PACS. Right kidney measures 10.6 x 5.9 x 5.5 cm. Left kidney measures 10.5 x 4.7 x 4.9 cm. 2 simple appearing cysts are seen in the right kidney measuring 2.2 and 1.9 cm in maximal dimension slightly.Punctate calcification is seen in the mid right kidney. Small cyst seen in superior left kidney measuring approximately 1.6 cm in diameter. No hydronephrosis identified involving either kidney. Blood flow is grossly unremarkable in color Doppler imaging. Bilateral ureteral jets are noted. Limited visualization of the bladder is unremarkable. Prevoid bladder volume 117 cc. Postvoid volume 28 cc. IMPRESSION: 1. Small renal cysts bilaterally 2. Punctate cortical calcification in right kidney. This could represent a small dystrophic calcification. Small nonobstructing stone is possible. Electronically signed by: Srikanth Lyons MD (08/20/2017 10:35 AM) [id number]
--- NOTE | 2017-08-20 11:22 | RAD ---
Thyroid ultrasound, 08/20/2017: HISTORY: Abnormal thyroglobulin levels The right lobe of the gland measures 3.1 x 1.5 x 1.3 cm while the left lobe of the gland measures 3.8 x 1.3 x 1.4 cm. The thyroid echo pattern is heterogeneous bilaterally. There is a suggestion of a 6 mm isoechoic nodule in the lateral aspect of the left lobe of the gland, however, it is difficult to clearly separate from the adjacent heterogeneous tissues. No calcifications or suspicious features are seen. There is symmetric blood flow in both lobes of the gland. IMPRESSION: Heterogeneous thyroid gland with a questionable small nonspecific nodule in the left lobe. The findings may reflect chronic or old thyroiditis. Electronically signed by: Yuan Rascon MD (08/20/2017 11:18 AM) [facility]
== END | disposition home or self-care (01) ==
LOC: US 07:51
PROVIDERS: ATTEND Nurse Practitioner Family
DX: N28.1 Cyst of kidney, acquired (principal); E03.9 Hypothyroidism, unspecified
CPT/HCPCS: 76536; 76770

== ENCOUNTER → 2017-10-28 | Outpatient (CLI) | payer MEDICARE, OTHER ==
--- NOTE | 2017-10-28 11:23 | RAD ---
Carotid doppler ultrasound History: Lightheadedness Multiple grayscale, color, and duplex spectral analysis waveform sonographic images were acquired of the carotid, subclavian, and vertebral arteries. Comparison: None Findings: RIGHT: PSV cm/sec EDV cm/sec Common carotid artery 98 19 Maximal internal carotid artery 80 25 External carotid artery 124 Vertebral artery 28 ICA/CCA ratio 0.82 LEFT: PSV cm/sec EDV cm/sec Common carotid artery 90 13 Maximum internal carotid artery 87 28 External carotid artery 123 Vertebral artery 28 ICA/CCA ratio 0.97 Velocities used to determine stenosis are known to correlate with NASCET angiographic criteria. There is antegrade flow in the bilateral vertebral arteries. There is intimal thickening bilaterally. There is also mixed echogenicity plaque of the distal carotid arteries and carotid bulbs greater on the right, overall moderate on the right and mild on the left. No significant stenosis is demonstrated on grayscale or color images. Impression: 1. There is mixed echogenicity plaque bilaterally compatible with calcified and noncalcified plaque. There is no evidence of a hemodynamically significant stenosis. Electronically signed by: Shaq Aragon MD (10/28/2017 11:20 AM) [id number]
== END | disposition home or self-care (01) ==
LOC: US 09:33
PROVIDERS: ATTEND Nurse Practitioner Family
DX: I65.23 Occlusion and stenosis of bilateral carotid arteries (principal); I12.9 Hypertensive chronic kidney disease with stage 1 through stage 4 chronic kidney disease, or unspecified chronic kidney disease; N18.3 Chronic kidney disease, stage 3 (moderate); E03.9 Hypothyroidism, unspecified; E78.5 Hyperlipidemia, unspecified; E78.00 Pure hypercholesterolemia, unspecified; K21.9 Gastro-esophageal reflux disease without esophagitis; Z86.73 Personal history of transient ischemic attack (TIA), and cerebral infarction without residual deficits; Z86.69 Personal history of other diseases of the nervous system and sense organs; Z68.31 Body mass index [BMI] 31.0-31.9, adult; Z88.2 Allergy status to sulfonamides; Z88.0 Allergy status to penicillin; Z88.8 Allergy status to other drugs, medicaments and biological substances; Z80.3 Family history of malignant neoplasm of breast; Z83.3 Family history of diabetes mellitus
CPT/HCPCS: 93880

== ENCOUNTER → 2017-11-03 | Outpatient (CLI) | payer MEDICARE, OTHER ==
--- NOTE | 2017-11-03 11:22 | RAD ---
CT HEAD WO CONTRAST History: dizziness, headache Comparison: None. Technique: Noncontrast CT imaging was performed of the head. Exposure: One or more of the following individualized dose reduction techniques were utilized for this examination: 1. Automated exposure control 2. Adjustment of the mA and/or kV according to patient size 3. Use of iterative reconstruction technique. Findings: No acute extra-axial or parenchymal hemorrhage is identified. There is no significant intra-axial mass effect, midline shift, or extra-axial fluid collection. The cox-white differentiation of the major vascular territories is preserved. Ventricular size is within normal limits. Cerebral volume is within normal limits the patient's age. There is mild ill-defined low-density of the supratentorial white matter bilaterally. 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 Mastoid air cells are aerated. There are air-fluid levels of the bilateral maxillary sinuses, patchy mild ethmoid air cell mucosal thickening. No acute calvarial abnormality is identified. There is atherosclerotic calcification of the intradural vertebral arteries and carotid siphons bilaterally. Impression: 1. No acute intracranial abnormality is identified. There is mild ill-defined low-density of the supratentorial parenchyma probably due to chronic microvascular ischemic disease. 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 2. There are air-fluid levels in the maxillary sinuses bilaterally which may be seen with acute sinusitis. Electronically signed by: Shaq Aragon MD (11/03/2017 11:19 AM) [facility]
== END | disposition home or self-care (01) ==
LOC: CT 10:42
PROVIDERS: ATTEND Nurse Practitioner Family
DX: I69.998 Other sequelae following unspecified cerebrovascular disease (principal); E78.5 Hyperlipidemia, unspecified; E78.00 Pure hypercholesterolemia, unspecified; E03.9 Hypothyroidism, unspecified; I12.9 Hypertensive chronic kidney disease with stage 1 through stage 4 chronic kidney disease, or unspecified chronic kidney disease; N18.3 Chronic kidney disease, stage 3 (moderate); K21.9 Gastro-esophageal reflux disease without esophagitis; Z86.73 Personal history of transient ischemic attack (TIA), and cerebral infarction without residual deficits; Z86.69 Personal history of other diseases of the nervous system and sense organs; Z68.31 Body mass index [BMI] 31.0-31.9, adult; Z88.8 Allergy status to other drugs, medicaments and biological substances; Z88.0 Allergy status to penicillin; Z88.2 Allergy status to sulfonamides; Z80.3 Family history of malignant neoplasm of breast; Z83.3 Family history of diabetes mellitus
CPT/HCPCS: 70450

== ENCOUNTER → 2017-12-06 | Outpatient (CLI) | payer MEDICARE, OTHER ==
--- NOTE | 2017-12-06 13:29 | RAD ---
Complete abdominal ultrasound 12/06/2017 8:53 AM Clinical History: THROMBOCYTOPENIA, SPLENOMEGALY Technique: Ultrasound examination of the abdomen was performed, and multiple static images were submitted for review. Comparison: None Findings: The pancreas is poorly visualized. Visualized portions of aorta and IVC are unremarkable. The liver is normal in size measuring 16.5 cm longitudinally. No focal hepatic lesions are seen. Liver is otherwise unremarkable. Portal venous flow is in the normal direction. The gallbladder is normal in appearance without evidence of wall thickening, stones, or sludge. Common bile duct is nondilated at 3 mm. The right kidney contains a 2.4 cm cyst within its superior pole. The right kidney is otherwise unremarkable in appearance measuring 11.6 cm in length. Spleen is normal in size measuring 10.3 cm longitudinally. Left kidney is normal in appearance measuring 11.2 cm in length. IMPRESSION: 1. 2.4 cm right renal cyst. 2. Otherwise unremarkable abdominal ultrasound Electronically signed by: Srikanth Lyons MD (12/06/2017 1:25 PM) [facility]
== END | disposition home or self-care (01) ==
LOC: US 08:03
DX: N28.1 Cyst of kidney, acquired (principal)
CPT/HCPCS: 76700

== ENCOUNTER → 2018-08-23 | Outpatient (CLI) | payer MEDICARE, OTHER ==
[~2018-08-23] MED LIST changes: +IOHEXOL 240 MG/ML 50ML VIAL. ONE; +IOHEXOL 300 MG/ML 75 ML VIAL. IV ONE
--- NOTE | 2018-08-23 14:26 | RAD ---
CT of the abdomen and pelvis without contrast, 08/23/2018: HISTORY: Abdominal pain and distention Multidetector CT imaging was performed following oral and IV administration of contrast. No hepatic abnormality is seen. The gallbladder is unremarkable. The pancreas shows no abnormality. The spleen is of normal size. There is mild bilateral renal cortical scarring. There are several bilateral renal cysts. The largest of these lies laterally on the right and measures 2.5 cm. The kidneys show no evidence of obstruction. No adrenal abnormality is detected. Aortoiliac calcific plaquing is present without evidence of aneurysm. No abdominal or pelvic adenopathy is seen. Prostatic calcifications are noted. There is mild diffuse bladder wall thickening. Colonic diverticula are present, quite extensive in the sigmoid region. No paracolonic inflammatory process is seen. The bowel loops are not dilated. No free fluid or free air is evident in the abdomen or pelvis. There are mild scattered degenerative changes in the spine. IMPRESSION: 1. Extensive sigmoid diverticulosis. 2. Mild diffuse bladder wall thickening is probably due to mild chronic bladder outlet obstruction, although cystitis could also give this appearance. Clinical correlation is suggested. 3. Bilateral renal cysts. PQRS Compliance Statement: One or more of the following individualized dose reduction techniques were utilized for this examination: 1. Automated exposure control 2. Adjustment of the mA and/or kV according to patient size 3. Use of iterative reconstruction technique Electronically signed by: Yuan Rascon MD (08/23/2018 2:23 PM) [facility]
== END | disposition home or self-care (01) ==
LOC: CT 09:24
PROVIDERS: ATTEND Nurse Practitioner Family
DX: K57.30 Diverticulosis of large intestine without perforation or abscess without bleeding (principal); N28.1 Cyst of kidney, acquired; N32.0 Bladder-neck obstruction; M47.819 Spondylosis without myelopathy or radiculopathy, site unspecified; I10 Essential (primary) hypertension; Z79.01 Long term (current) use of anticoagulants
CPT/HCPCS: 74177; Q9967

== ENCOUNTER → 2019-03-09 | Outpatient (CLI) | payer MEDICARE, OTHER ==
[~2019-03-09] MED LIST changes: -CETI10TA22 PO; +CETI10TA24 PO; -IOHEXOL 240 MG/ML 50ML VIAL. ONE; -IOHEXOL 300 MG/ML 75 ML VIAL. IV ONE; +IOHEXOL 350 MG/ML 100 ML VIAL. IV ONE; -MELA3TAB2 PO; +MELA3TAB56 PO
--- NOTE | 2019-03-09 17:41 | RAD ---
CTA Chest with contrast: Clinical History: Elevated d-dimer and Shortness of breath. COMPARISON: July 06, 2017 Axial helical images of the chest were obtained after the administration of 100 cc of IV Isovue-370 and timed appropriately for a pulmonary arterial study. Conventional axial reconstruction was performed in addition to coronal, sagittal and bilateral oblique MIP (maximum intensity projection). This study was ordered to detect possible pulmonary embolism. There are no filling defects to suggest pulmonary embolism. There is minimal groundglass opacities in the lungs. There is no mediastinal or hilar lymphadenopathy. The ascending thoracic aorta is mildly dilated to 4.4 cm. There is coronary artery calcifications. Impression: 1. No evidence of pulmonary embolism. 2. Minimal groundglass opacities are nonspecific and likely discoid atelectasis. 3. Mildly dilated ascending thoracic aorta. This is unchanged. 4. Coronary artery calcifications. PQRS Compliance Statement: One or more of the following individualized dose reduction techniques were utilized for this examination: 1. Automated exposure control 2. Adjustment of the mA and/or kV according to patient size 3. Use of iterative reconstruction technique Electronically signed by: Reji Bermudez III, MD (03/09/2019 5:38 PM) [facility]
== END | disposition home or self-care (01) ==
LOC: CT 16:24
PROVIDERS: ATTEND Family Medicine
DX: I25.10 Atherosclerotic heart disease of native coronary artery without angina pectoris (principal); R79.1 Abnormal coagulation profile
CPT/HCPCS: 71275; Q9967

== ENCOUNTER → 2020-06-14 | Outpatient (CLI) | payer MEDICARE, OTHER ==
[~2020-06-14] MED LIST changes: -CETI10TA24 PO; +CETI10TA74 PO; -IOHEXOL 350 MG/ML 100 ML VIAL. IV ONE; +MELA3TAB4 PO; -MELA3TAB56 PO
[2020-06-14 16:22] LABS: BASO # 0.1 x10^3/uL (0.0-0.2); BASO % 1 % (0-3); EOS # 0.4 x10^3/uL (0.0-0.7); EOS % 5 % (0-3); HEMATOCRIT 44.6 % (39.0-53.0); LYMPH # 2.7 x10^3/uL (1.0-4.8); LYMPH % 36 % (24-48); MEAN CORPUSCULAR HEMOGLOBIN 36 pg (25-35); MEAN CORPUSCULAR HGB CONC 34 g/dL (31-37); MEAN CORPUSCULAR VOLUME 108 fL (79-100); MONO # 0.8 x10^3/uL (0.0-1.1); MONO % 10 % (0-9); NEUT # 3.6 x10^3uL (1.8-7.7); NEUT % 48 % (31-73); PLATELET COUNT 111 x10^3/uL (140-400); RED BLOOD COUNT 4.13 x10^6/uL (4.30-5.70); RED CELL DISTRIBUTION WIDTH 12.6 % (11.5-14.5); WHITE BLOOD COUNT 7.5 x10^3/uL (4.0-11.0)
[2020-06-14 16:32] LABS: CREATININE 1.5 mg/dL (0.7-1.3); GFR 45.7
[2020-06-14 16:38] LABS: ALBUMIN 3.9 g/dL (3.4-5.0); ALBUMIN/GLOBULIN RATIO 1.2 (1.0-1.7); TOTAL BILIRUBIN 0.5 mg/dL (0.2-1.0); TOTAL PROTEIN 7.1 g/dL (6.4-8.2)
--- NOTE | 2020-06-14 16:45 | RAD ---
Exam: CT of chest with out contrast INDICATION: Chest pain, onset last night TECHNIQUE: Sequential axial images through the chest obtained without IV contrast. Sagittal and coron al reformatted images were reconstructed from the axial data and reviewed. Comparisons: 03/09/2019 FINDINGS: Visualized portions of the thyroid are unremarkable. No enlarged mediastinal lymph nodes are identifi ed. Heart size is normal. No pericardial effusion. Mild coronary artery calcifications. Thoracic aorta santamaria s a normal course and caliber. Pulmonary artery is not enlarged. Airways are patent. No consolidation or pneumothorax. No suspicious lung nodules are identified. No pleural effusion or thickening. Cystic lesions at the kidneys bilaterally incompletely evaluated on noncontrast exam, better evaluate d on prior contrast enhanced studies as simple cysts. No suspicious osseous lesions or acute fractures. IMPRESSION: 1. No acute process identified within the abdomen or pelvis. 2. Mild coronary artery calcifications. Exposure: One or more of the following in the visualized dose reduction techniques were utilized for this examination: 1. Automated exposure control 2. Adjustment of the MA and/or KV according to patient size 3. Use of iterative of reconstructive technique Electronically signed by: Octavio Avendano MD (06/14/2020 4:42 PM) [facility]
== END ==
LOC: LAB 15:52
PROVIDERS: ATTEND Family Medicine
DX: I25.10 Atherosclerotic heart disease of native coronary artery without angina pectoris (principal); N28.1 Cyst of kidney, acquired
CPT/HCPCS: 36415; 71250; 80053; 82550; 84484; 85025; 85379

== ENCOUNTER → 2020-06-19 | Outpatient (CLI) | payer MEDICARE, OTHER ==
--- NOTE | 2020-06-19 18:10 | RAD ---
EXAM: Chest, 2 views. HISTORY: Shortness of breath. COMPARISON: 06/14/2020 FINDINGS: 2 views of the chest are obtained. There is no infiltrate, pleural effusion or pneumothorax . The heart is normal in size. There is a calcified granuloma within the right lower lobe. IMPRESSION: No acute pulmonary finding. Electronically signed by: Lucia Austin MD (06/19/2020 6:07 PM) [facility]
== END ==
LOC: RAD 15:34
PROVIDERS: ATTEND Family Medicine
DX: J84.10 Pulmonary fibrosis, unspecified (principal); R07.89 Other chest pain
CPT/HCPCS: 71046

== ENCOUNTER → 2020-06-20 | Outpatient (CLI) | payer MEDICARE, OTHER ==
[~2020-06-20] MED LIST changes: +ACYC-12 PO; -ACYC400T PO
--- NOTE | 2020-06-20 17:03 | RAD ---
NM LUNG PERFUSION SCAN History:Reason: CP / Spl. Instructions: / History: Comparison: Chest x-ray June 19, 2020 Findings: Perfusion examination was performed. Perfusion images were acquired after the patient was i njected with 5.5 mCi of technetium 99m MAA. Normal ventilation images. No mismatched perfusion defect is identified. Impression: 1. Low probability for pulmonary embolic disease. Electronically signed by: Lev Rosales DO (06/20/2020 5:00 PM) [id number]
== END ==
LOC: NM 11:58
PROVIDERS: ATTEND Family Medicine
DX: R07.89 Other chest pain (principal)
CPT/HCPCS: 78580; A9540; 96374

== ENCOUNTER → 2020-12-31 | Outpatient (CLI) | payer MEDICARE, OTHER ==
[~2020-12-31] MED LIST changes: -COLE625T12 PO; +COLE625T29 PO; -DOXY100C2 PO; +DOXY100C3 PO
--- NOTE | 2020-12-31 14:32 | RAD ---
INDICATION: Reason: BILAT LEG PAIN / Spl. Instructions: / History: COMPARISON: None. TECHNIQUE: Grayscale, color and doppler ultrasound images were obtained of the bilateral lower extrem ity venous vasculature. RIGHT: No thrombus identified in the common femoral vein, femoral vein, popliteal vein or visualized calf ve ins. LEFT: No thrombus identified in the common femoral vein, femoral vein, popliteal vein or visualized calf ve ins. IMPRESSION: * No thrombus identified in deep venous system of bilateral lower extremities. Electronically signed by: Porfirio Snow MD (12/31/2020 2:30 PM) [id number]
== END ==
LOC: US 13:30
PROVIDERS: ATTEND Family Medicine
DX: M79.604 Pain in right leg (principal); M79.605 Pain in left leg; R20.8 Other disturbances of skin sensation
CPT/HCPCS: 93970

== ENCOUNTER → 2021-03-24 | Outpatient (CLI) | payer MEDICARE, OTHER ==
--- NOTE | 2021-03-24 14:47 | RAD ---
XR EXAM OF ANKLE 3V, XR BILAT FEET 3 VIEWS 03/24/2021 10:13 AM INDICATION: Pain for 50 years COMPARISON: None available. TECHNIQUE: 3 views of the right foot, 3 views of the right ankle, 3 views the left foot and 3 views of the left ankle are provided. FINDINGS/ IMPRESSION: Right foot and ankle: There is no acute fracture or dislocation. Joint spaces are maintained. Bone mi neralization is within normal limits. Regional soft tissues are within normal limits. There is no sof t tissue gas or osseous erosion. No radiopaque foreign body. Pes planus. Plantar calcaneal enthesophy te. Tripartite hallux sesamoid. Left foot and ankle: There is no acute fracture or dislocation. Joint spaces are maintained. Bone min eralization is within normal limits. Regional soft tissues are within normal limits. There is no soft tissue gas or osseous erosion. No radiopaque foreign body. Pes planus. Tiny plantar calcaneal enthes ophyte. Bipartite hallux sesamoid. Electronically signed by: Megan Morales MD (03/24/2021 2:17 PM) [id number]
== END ==
LOC: RAD 09:59
PROVIDERS: ATTEND Podiatrist
DX: M77.32 Calcaneal spur, left foot (principal); M77.31 Calcaneal spur, right foot; M25.871 Other specified joint disorders, right ankle and foot; M25.872 Other specified joint disorders, left ankle and foot
CPT/HCPCS: 73610-50; 73630-50